=== PATIENT | female | born 1985 | race Caucasian/White ===

== ENCOUNTER 2018-08-13 04:31 | Observation (INO) ==
--- NOTE | 2018-08-13 08:02 | Internal Med History&Physical ---
Date of Encounter: 08/13/18 Time of Encounter: 07:42 Internal Medicine - H&P: HPI Chief complaint: dizziness, fall Admitted From: Home Plans for Post Hospital Care: Home History of present illness: Ms. Phillips is a 33 year old female who has history of asthma, marijuana abuse, history VSD repair present to urgent care for dizziness, fall, nausea vomiting for 3 days. Patient has been experiencing dizziness fatigue palpation shortness of breath fatigue for 6 weeks she was seen by her PCP in the clinic diagnosis of viral syndrome, ordered echocardiogram but was not done yet. Over last 3 days her fatigue become progressively worse, she fell last night, hit her head and the present to urgent care. she also compplalins of epigastric pain on and off for 3 days, 10 out of 10 constant sharp , associated with severe nausea and vomiting. In the emergency room she was found positive mono, CT of head small scalp laceration no intracranial abnormality, urine shows positive nitrates WBC 5-10 red cells 10-20 large mucous, Heavy bacteria. Negative test, WBC 19.1 hemoglobin is 17.3 neutrophils 72% lymphocytes 19% [place] 7.3% creatinine 1.5 total bilirubin 1.3 otherwise normal; TSH 0.74, strep negative, influenza negative,troponin negative. Patient is admitted for mononucleosis, dizziness with fall, abdominal pain nausea vomiting, scalp laceration was headache IV fluids, supportive care, on his kidney function Past Med Surg Social Fam HX - Past Medical History Medical history: asthma Psychiatric history: anxiety - Past Surgical History Additional surgical history: VSD repair, tendon surgery in L arm, "several D&Cs" - Social History Smoking Status: Current every day smoker Packs per day: 1 Smokeless Tobacco Status: No Alcohol use: occasionally Drug use: none Internal Medicine - H&P: Meds Allergy/AdvReac Type Severity Reaction Status Date / Time citalopram [From Celexa] Allergy Unknown Agitated Verified 08/13/18 08:15 All Systems PM: A 10-system review of systems was performed and is negative for pertinent findings except as documented above in the HPI. - Constitutional Vitals: Temp Pulse Resp BP Pulse Ox 98.1 F 82 16 108/64 96 08/13/18 06:34 08/13/18 06:34 08/13/18 06:34 08/13/18 06:34 08/13/18 06:34 General appearance: Present: A&O X 3, pleasant Exam: CONSTITUTIONAL: Patient appears as an age appropriate female well developed, in no acute distress. EYES Clear sclerae, bilateral pupils are equal, reactive to light and accommodation. Extraocular movements are intact RESPIRATORY: No accessory muscle use, bilateral clear to auscultation, no wheezing, no crackles/rales. CARDIOVASCULAR: Regular heart rate, normal S1 and S2, no murmurs GASTROINTESTINAL: bowel sounds present, soft, no tenderness. No hepatosplenomegaly. No bilateral CVA tenderness MUSCULOSKELETAL: Joints in normal range of motion, no clubbing, no edema, no cyanosis. Bilateral peripheral pulses 2+ LYMPHATIC no lymphadenopathy in neck, groin and axilla bilaterally, no thyromegaly. NEUROLOGIC: CN II to XII are grossly intact, no focal neurological deficit. Deep tendon reflexes 2+ bilaterally. Normal light touch sensation to upper and lower extremity PSYCHIATRIC: Oriented x3, with good insight, mood is euthymic. No hallucinations or delusions. SKIN: Skin warm and dry, no rashes, no open wound. - Assessment and plan (1) Mononucleosis syndrome Current Visit: Yes Status: Acute Assessment and plan: Supportive care (2) Head ache Current Visit: Yes Status: Acute Assessment and plan: after fall, CT of head was negative for intracranial bleeding, symptom control, tylenol prn Qualifiers: Headache type: post-traumatic Headache chronicity pattern: acute headache Intractability: not intractable Qualified Code(s): G44.319 - Acute post- traumatic headache, not intractable (3) UTI (urinary tract infection) Current Visit: Yes Status: Acute Assessment and plan: will recheck UA and Culture, start ceftriaxone Qualifiers: Urinary tract infection type: site unspecified Hematuria presence: without hematuria Qualified Code(s): N39.0 - Urinary tract infection, site not specified (4) ARF (acute renal failure) Current Visit: Yes Status: Acute Assessment and plan: from [facility] Qualifiers: Acute renal failure type: with other specified pathological lesion Qualified Code(s): N17.8 - Other acute kidney failure (5) VSD (ventricular septal defect) Current Visit: Yes Status: Chronic Assessment and plan: VSD s/p reparie as a kid, will check TTE, EKG showed RBBB (6) Asthma Current Visit: Yes Status: Acute Assessment and plan: patient has multiple episodes of asthma exacerbation, on multiple round steroids, no signs for exacerbation, conitnue home meds Qualifiers: Asthma severity: mild Asthma persistence: intermittent Asthma complication type: uncomplicated Qualified Code(s): J45.20 - Mild intermittent asthma, uncomplicated (7) GERD (gastroesophageal reflux disease) Current Visit: Yes Status: Acute Assessment and plan: add iV PPI BID Qualifiers: Esophagitis presence: with esophagitis Qualified Code(s): K21.0 - Gastro- esophageal reflux disease with esophagitis (8) Abdominal pain Current Visit: Yes Status: Acute Assessment and plan: nausea and vomiitng for 3 days, will do RUQ US, lipase, normal LFTs, Qualifiers: Abdominal location: upper abdomen, unspecified Qualified Code(s): R10.10 - Upper abdominal pain, unspecified (9) Marijuana abuse Current Visit: Yes Status: Acute Assessment and plan: urine toxi showed positive for THC, Amphtamines (10) Fatigue Current Visit: Yes Status: Acute Assessment and plan: likley from mon, normla TSH, sheeba check cotisol Qualifiers: Fatigue type: chronic, unspecified Qualified Code(s): R53.82 - Chronic fatigue, unspecified - Time Spent With Patient Total time spent is greater than 50% in coordination of care (as documented) at patient's floor/unit and/or counseling patient: Greater than 35 minutes
[2018-08-13] MEDS ORDERED: Naloxone 0.4 MG/ML INJ IVP PRN (08:16)
[2018-08-13] MEDS ORDERED: Acetaminophen 325 MG TABLET PO PRN (08:16)
[2018-08-13] MEDS ORDERED: Ondansetron 4 MG/2 ML VIAL ONE (09:14)
[2018-08-13] MEDS: cefTRIAXone 1,000 MG in Water for inj. (sterile) 20 ML 10 ML IVP SCH (09:35)
[2018-08-13] MEDS: Ringers Solution, Lactated 1,000 ML IVC SCH (09:35)
[2018-08-13] MEDS: *HR* HYDROcodone/Acet 5/325 mg TABLET PO PRN ×2 (10:40→21:14)
[2018-08-13] MEDS: Ondansetron 4 MG/2 ML VIAL IVP PRN ×2 (10:41→21:14)
[2018-08-13] MEDS: Pantoprazole 40 MG VIAL IVP SCH ×2 (10:58→18:15)
[2018-08-13] MEDS: Budesonide/Formoterol 160/4.5 1 PUFF INH IH SCH ×2 (11:03→20:22)
[2018-08-13] MEDS: Nicotine 14 MG PATCH.TD24 TD SCH (18:15)
[2018-08-14] MEDS ORDERED: traMADol 50 MG TABLET PO ONE (00:13)
[2018-08-14] MEDS: Pantoprazole 40 MG VIAL IVP SCH (04:38)
[2018-08-14] MEDS: *HR* HYDROcodone/Acet 5/325 mg TABLET PO PRN (04:38)
[2018-08-14 05:50] LABS: Basophils # 0.2 K/mcL (0.0-0.2); Basophils % 1.5 %; Eosinophils # 0.5 K/mcL (0.0-0.6); Eosinophils % 4.6 %; Hematocrit 38.1 % (35.3-44.9); Hemoglobin 12.9 g/dL (11.5-15.4); Immature Granulocytes % 0.3 % (0-4); Lymphocytes # 3.2 K/mcL (0.6-4.6); Lymphocytes % 30.9 %; Mean Corpuscular HGB Conc 33.9 g/dL (31.6-35.5); Mean Corpuscular Hemoglobin 31.2 pg (28.0-33.3); Mean Corpuscular Volume 92.3 fL (83.0-100.0); Mean Platelet Volume 10.6 fL (9.4-12.4); Monocytes # 0.8 K/mcL (0.0-1.3); Monocytes % 7.7 %; Neutrophils # 5.7 K/mcL (1.6-8.9); Platelet Count 300 K/mcL (140-400); Red Blood Count 4.13 M/mcL (3.82-4.97); Red Cell Distribution Width 12.7 % (11.5-14.5)
[2018-08-14 06:02] LABS: Alanine Aminotransferase 12 Units/L (7-52); Albumin 3.4 g/dL (3.5-5.7); Albumin/Globulin Ratio 1.6 (1.1-2.2); Alkaline Phosphatase 43 Units/L (34-104); Aspartate Amino Transferase 13 Units/L (13-39); BUN/Creatinine Ratio 15 (6-26); Bilirubin,Total 0.3 mg/dL (0.3-1.0); Blood Urea Nitrogen 12 mg/dL (6-20); Calcium 8.8 mg/dL (8.6-10.3); Carbon Dioxide 22 mEq/L (23-29); Chloride 114 mEq/L (98-107); Globulin 2.1 g/dL (2.4-3.5); Glucose 89 mg/dL (70-105); Osmolality,Calculated 289 (280-300); Potassium 3.7 mEq/L (3.5-5.1); Sodium 140 mEq/L (136-145); Total Protein 5.5 g/dL (6.4-8.9); eGFR For Non-African Americans > 60 (> 60)
[2018-08-14] MEDS: Budesonide/Formoterol 160/4.5 1 PUFF INH IH SCH (08:06)
[2018-08-14] MEDS: cefTRIAXone 1,000 MG in Water for inj. (sterile) 20 ML 10 ML IVP SCH (08:33)
[2018-08-14] MEDS: Nicotine 14 MG PATCH.TD24 TD SCH (08:34)
[2018-08-14] MEDS: Ringers Solution, Lactated 1,000 ML IVC SCH (08:35)
[2018-08-14 12:16] VITALS: BP 88/54
[2018-08-14 15:12] LABS: Bilirubin,Urine Negative (Negative); Blood,Urine Small (Negative); Clarity,Urine Clear (Clear); Color,Urine Yellow (Yellow); Glucose,Urine (UA) Normal (Normal); Ketones,Urine Negative (Negative); Leukocyte Esterase,Urine Negative (Negative); Nitrite,Urine Negative (Negative); PH,Urine 5.5 pH Units (5.0-8.0); Protein,Urine Negative (Neg-Trace); Specific Gravity,Urine 1.027 (1.010-1.025); Urobilinogen,Urine Normal (Normal)
[2018-08-14 15:15] LABS: Bacteria,Urine Few per hpf (None-Few); Hyaline Casts,Urine None Seen per lpf (None-Few); RBC,Urine 0-3 per hpf (0-3); Squamous Epithelial Cell,Urine Many per lpf (None-Few)
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
[2018-08-14] MEDS ORDERED: Budesonide/Formoterol 160/4.5 1 PUFF INH IH SCH (22:00)
== END 2018-08-14 18:59 | disposition home or self-care (01) ==
LOC: 2SOUTHHOLD → SUATTDRO 06:25
PROVIDERS: ADMIT Family Medicine; ATTEND Internal Medicine